=== PATIENT | male | born 1950 | race Caucasian/White ===

== ENCOUNTER 2017-06-23 08:51 | Emergency (ER) | payer BC ==
[2017-06-23] MEDS ORDERED: PREDNISONE 20 MG TABLET PO ONE (09:32)
--- NOTE | 2017-06-23 09:35 | ER Document Report ---
ED Medical Screen (RME) - General Chief Complaint: Allergic Reaction Stated Complaint: POSSIBLE ALLERGIC REACTION Time Seen by Provider: 06/23/17 09:32 Notes: Patient states she has had allergic reactions to strawberries in the past where he has had hives. He states yesterday he did not eat any strawberries but developed an allergic reaction. He states yesterday his throat felt itchy and he had some hives. He states he is intermittently had the sensation that his lips and tongue of had some swelling. He states currently he feels better than yesterday but still has some hives. - Related Data Allergies/Adverse Reactions: No Known Allergies Allergy (Unverified 06/23/17 09:00) Home Medications: Current Home Medications Lisinopril/Hydrochlorothiazide [Lisinopril-Hctz 20-25 mg Tab] 1 each PO DAILY [History] Past Medical History - Social History Chew tobacco use (# tins/day): No Frequency of alcohol use: Occasional Drug Abuse: None - Past Medical History Cardiac Medical History: Reports: Hx Hypertension Renal/ Medical History: Denies: Hx Peritoneal Dialysis Past Surgical History: Reports: Hx Orthopedic Surgery - right knee Physical Exam - Vital signs Vitals: Temp Pulse Resp BP Pulse Ox 99.2 F 107 H 20 115/62 93 06/23/17 08:55 06/23/17 08:55 06/23/17 08:55 06/23/17 08:55 06/23/17 08:55 Course - Vital Signs Vital signs: Temp Pulse Resp BP Pulse Ox 99.2 F 107 H 20 115/62 93 06/23/17 08:55 06/23/17 08:55 06/23/17 08:55 06/23/17 08:55 06/23/17 08:55
[2017-06-23] MEDS ORDERED: NORMAL SALINE 1000 ML 1,000 ML IV ONE (10:11)
[2017-06-23 10:16] LABS: ABSOLUTE BASOPHILS # (AUTO) 0.1 10^3/uL (0.0-0.2); ABSOLUTE EOSINOPHILS # (AUTO) 0.2 10^3/uL (0.0-0.6); ABSOLUTE LYMPHOCYTES (AUTO) 1.5 10^3/uL (0.5-4.7); ABSOLUTE MONOCYTES (AUTO) 0.4 10^3/uL (0.1-1.4); ABSOLUTE NEUT (AUTO) 6.6 10^3/uL (1.7-8.2); BASOPHILS % (AUTO) 0.6 % (0-2); EOSINOPHILS % (AUTO) 2.6 % (0-6); HEMATOCRIT 48.5 % (37.9-51.0); HEMOGLOBIN 16.6 g/dL (13.5-17.0); HGB HCT DIFFERENCE 1.3; LYMPHOCYTES % (AUTO) 16.9 % (13-45); MEAN CORPUSCULAR HEMOGLOBIN 31.5 pg (27.0-33.4); MEAN CORPUSCULAR HGB CONC 34.2 g/dL (32.0-36.0); MEAN CORPUSCULAR VOLUME 92 fl (80-97); MONOCYTES % (AUTO) 4.7 % (3-13); RED BLOOD COUNT 5.26 10^6/uL (4.35-5.55); RED CELL DISTRIBUTION WIDTH 13.3 % (11.5-14.0); SEGMENTED NEUTROPHILS % (AUTO) 75.2 % (42-78); WHITE BLOOD COUNT 8.8 10^3/uL (4.0-10.5)
--- NOTE | 2017-06-23 10:16 | ER Document Report ---
ED Allergic Reaction - General Chief Complaint: Allergic Reaction Stated Complaint: POSSIBLE ALLERGIC REACTION Time Seen by Provider: 06/23/17 09:32 Mode of Arrival: Ambulatory Notes: The patient is a 67-year-old male who presents with a pruritic rash on his lower abdomen since yesterday. He has had this multiple times in the past and thinks it is from strawberries, but he did not have any strawberries yesterday. He took Benadryl yesterday and earlier today with some relief of his pruritus. Patient noticed to be in new onset A. fib with RVR in triage. Patient follows with Dr. Palomino in [place] and has never been told that he has A. fib. He denies chest pain, shortness of breath, lightheadedness, near syncope, syncope, difficulty breathing, difficulty swallowing, tongue or lip swelling, nausea or vomiting. - Related Data Allergies/Adverse Reactions: No Known Allergies Allergy (Unverified 06/23/17 09:00) Home Medications: Current Home Medications Lisinopril/Hydrochlorothiazide [Lisinopril-Hctz 20-25 mg Tab] 1 each PO DAILY [History] Past Medical History - General Information source: Patient - Social History Smoking Status: Current Every Day Smoker Chew tobacco use (# tins/day): No Frequency of alcohol use: Occasional Drug Abuse: None Family History: Reviewed & Not Pertinent Patient has suicidal ideation: No Patient has homicidal ideation: No - Past Medical History Cardiac Medical History: Reports: Hx Hypertension Renal/ Medical History: Denies: Hx Peritoneal Dialysis Past Surgical History: Reports: Hx Orthopedic Surgery - right knee Review of Systems - Review of Systems Notes: REVIEW OF SYSTEMS: CONSTITUTIONAL: -fevers, -chills EENT: -eye pain, -difficulty swallowing, -nasal congestion CARDIOVASCULAR:-chest pain, -syncope. RESPIRATORY: -cough, -SOB GASTROINTESTINAL: -abdominal pain, - nausea, -vomiting, -diarrhea GENITOURINARY: -dysuria, -hematuria MUSCULOSKELETAL: -back pain, -neck pain SKIN: +rash HEMATOLOGIC: -easy bruising or bleeding. LYMPHATIC: -swollen, enlarged glands. NEUROLOGICAL: -altered mental status or loss of consciousness, -headache, - neurologic symptoms PSYCHIATRIC: -anxiety, -depression. ALL OTHER SYSTEMS REVIEWED AND NEGATIVE. Physical Exam - Vital signs Vitals: Temp Pulse Resp BP Pulse Ox 99.2 F 107 H 20 115/62 93 06/23/17 08:55 06/23/17 08:55 06/23/17 08:55 06/23/17 08:55 06/23/17 08:55 - Notes Notes: PHYSICAL EXAMINATION: GENERAL: Well-appearing, well-nourished and in no acute distress. HEAD: Atraumatic, normocephalic. EYES: Pupils equal round and reactive to light, extraocular movements intact, sclera anicteric, conjunctiva are normal. ENT: nares patent, oropharynx clear without exudates. Moist mucous membranes. No oropharynx swelling. NECK: Normal range of motion, supple without lymphadenopathy, no stridor. LUNGS: Breath sounds clear to auscultation bilaterally and equal. No wheezes rales or rhonchi. HEART: Irregularly irregular rhythm. ABDOMEN: Soft, nontender, normoactive bowel sounds. No guarding, no rebound. No masses appreciated. EXTREMITIES: Normal range of motion, no pitting or edema. No cyanosis. NEUROLOGICAL: Cranial nerves grossly intact. Normal speech, normal gait. Normal sensory and motor exams. PSYCH: Normal mood, normal affect. SKIN: Urticarial lesions on lower abdomen. Course - Re-evaluation Re-evalutation: Patient has a urticarial rash in his lower abdomen, but no other signs of anaphylaxis and his airway is completely patent. He is found to be in new onset A. fib with RVR in triage. He has not had any chest pain, palpitations or syncopal episodes. He saw his dough cutter about a month ago and was told that he "has a clean bill of health." 06/23/17 10:52 Pt in new onset A fib w/ RVR. He is having no symptoms at this time. His CHADS2-VASC score is 2. Called over and spoke to his Linen Room Attendant, Dr. Tayler Palomino. He had an echo (EF 60-65%) and stress test 5 months ago. He is on metorpolol [address] Palomino recommends doubling his metoprolol to 50 mg bid. He also recommends beginning Eliquiis 5 mg bid and following-up in his clinic this week. Pt is comfortable with plan. Will send home with 4 more days of prednisone and instructions to continue benadryl as needed with strict return precautions for anaphylaxis. Since pt has had multiple episodes of urticaria, will have patient follow-up with the damage cutter. Patient is comfortable with plan. - Vital Signs Vital signs: Temp Pulse Resp BP Pulse Ox 99.2 F 107 H 26 H 108/77 95 06/23/17 08:55 06/23/17 08:55 06/23/17 11:01 06/23/17 11:01 06/23/17 11:01 - Laboratory Result Diagrams: 06/23/17 10:00 06/23/17 10:00 Laboratory results interpreted by me: 06/23/17 10:00 BUN 27 H Creatinine 1.26 H Est GFR (Non-Af Amer) 57 L Glucose 114 H - EKG Interpretation by Me EKG shows normal: Intervals, QRS Complexes, ST-T Waves Rate: Tachycardia Rhythm: A.Fib When compared to previous EKG there are: Previous EKG unavailable Discharge - Discharge Clinical Impression: Atrial fibrillation with RVR, Urticaria Condition: Stable Disposition: HOME, SELF-CARE Additional Instructions: Dr. Palomino recommends increasing your metoprolol from 25 mg twice a day to 50 mg twice a day. You will also begin a blood thinner, Eliquis 5mg twice a day, and follow-up with him this week. Return immediately to the ER if you notice any worsening symptoms or your allergic reaction, including difficulty breathing, difficulty swallowing or tongue swelling. If you began to have chest pain, shortness of breath or any other concerns, return immediately to the ER. ACUTE ALLERGIC REACTION: Your symptoms are due to an allergic reaction. Allergy can cause hives, swelling of the hands, feet, and face, hoarseness, and difficulty swallowing or breathing. It may be due to exposure to medication, animal dander, foods, infection, or insect bites. Medication is a common cause, even when prior use of this same medication caused no problems. Acute treatment may include adrenalin and antihistamines. Usually, the specific allergic agent can't be identified unless repeated episodes occur. Home treatment includes the following: (1) Stop any suspicious medications. This will be discussed with you. (2) Oral antihistamines for the next four to five days. Example, diphenhydramine (Benadryl) every four hours. (3) You may also use cimetidine (Tagamet), ranitidine (Zantac), or famotidine ( Pepcid) every four hours if diphenhydramine is not controlling itching and hives. (4) Avoid aspirin until the hives completely disappear. (5) Avoid hot baths or showers until the hives are completely gone. Call the doctor if faintness, difficulty swallowing, tightness in the chest , or wheezing occurs. STEROID MEDICATION: You have been given a medicine of the cortisone/steroid class. This medication is used to control inflammation or allergy. It is usually only given for a short period of time, until the acute process subsides. There are usually no side effects from short-term use of cortisone-like medications. Some persons feel an increased sense of well-being and are not sleepy at bedtime. Long-term use of cortisone medications is best avoided, unless required for a severe condition. If your condition does not remit, or relapses after the course of corticosteroid medication, you should consult your physician. ANTIHISTAMINES: An antihistamine has been given and/or prescribed to control your symptoms. Antihistamines are used for many reasons, including itching, watering eyes, runny nose, allergic swelling, hives, and insect stings. Antihistamines may cause drowsiness, especially with the first dose. Do not operate machinery or drive while under the effects of the medication. Other common side effects include dry mouth and eyes. In older persons, antihistamines can occasionally cause urinary retention, constipation, and trouble focusing the eyes. Do not combine the medication with alcohol, or with any other medication without talking to your doctor. USE OF DIPHENHYDRAMINE: The use of diphenhydramine (Benadryl) has been recommended to control allergic symptoms. The 25 mg strength is available over- the-counter, as well as the elixir. This antihistamine is used for many symptoms. It's useful for itching, watering eyes and nose, allergic swelling, hives, and insect stings. The medication can be repeated four times daily. Age Elixir (12.5 mg/tsp) 25 mg pill 2-3 yr 1/2 tsp 4-8 yr 1 tsp 9-14 yr 2 tsp one tab adult 1-2 tabs Antihistamines may cause drowsiness, especially with the first dose. Do not operate machinery or drive while under the effects of the medication. Do not combine the medication with alcohol, or with any other medication without talking to your doctor. FOLLOW-UP CARE: If you have been referred to a physician for follow-up care, call the physician s office for an appointment as you were instructed or within the next two days. If you experience worsening or a significant change in your symptoms, notify the physician immediately or return to the Emergency Department at any time for re-evaluation. Atrial Fibrillation Atrial fibrillation is an abnormal heart rhythm, caused by irregular electrical circuits in the upper heart chamber. It can be caused by heart valve disease, hardening of the arteries, or metabolic problems such as thyroid disease, or may occur without a clear cause. Atrial fibrillation may occur only occasionally, or may be chronic. Atrial fibrillation often results in a very fast heart rate, with palpitations, lightheadedness, and shortness of breath. Treatment is to slow the abnormally fast rate, and to convert the rhythm back to normal, if possible. Many patients stay in atrial fibrillation for years without symptoms or complications. Your doctor will decide whether you can be converted back to a normal heart rhythm. Contact the doctor or emergency medical system at once if you develop chest pain, shortness of breath, or severe lightheadedness, or if you develop any disturbance of consciousness, problems with speech, or localized weakness. Prescriptions: Apixaban [Eliquis 5 mg Tablet] 5 mg PO BID 10 Days tablet Metoprolol Tartrate 50 mg PO BID 10 Days tablet Prednisone [Deltasone 20 mg Tablet] 3 tab PO DAILY 4 Days tablet Referrals: TAYLER PALOMINO MD [NO LOCAL MD] - Follow up as needed
[2017-06-23 10:40] LABS: ALANINE AMINOTRANSFERASE 54 U/L (21-72); ALBUMIN 4.2 g/dL (3.5-5.0); ALKALINE PHOSPHATASE 84 U/L (38-126); ANION GAP 13 (5-19); ASPARTATE AMINO TRANSFERASE 25 U/L (17-59); BILIRUBIN,DIRECT 0.3 mg/dL (0.0-0.4); BILIRUBIN,TOTAL 0.9 mg/dL (0.2-1.3); BLOOD UREA NITROGEN 27 mg/dL (7-20); CALCIUM 9.2 mg/dL (8.4-10.2); CARBON DIOXIDE 29 mmol/L (22-30); CHLORIDE 99 mmol/L (98-107); CREATININE RESULT 1.26 mg/dL (0.52-1.25); GLUCOSE 114 mg/dL (75-110); MAGNESIUM 2.2 mg/dL (1.6-2.3); POTASSIUM 4.6 mmol/L (3.6-5.0); SODIUM 140.9 mmol/L (137-145); TOTAL PROTEIN 7.2 g/dL (6.3-8.2)
[2017-06-23] MEDS ORDERED: METOPROLOL TARTRATE 25 MG TABLET PO ONE (11:04)
[2017-06-23] MEDS ORDERED: APIXABAN 5 MG TABLET PO ONE (11:04)
[2017-06-23 11:19] VITALS: BP 118/95
--- NOTE | 2017-06-23 13:37 | EKG REPORT ---
SEVERITY:- ABNORMAL ECG - ATRIAL FIBRILLATION, V-RATE 81-169 LEFT ANTERIOR FASCICULAR BLOCK BORDERLINE T ABNORMALITIES, ANT-LAT LEADS BORDERLINE PROLONGED QT INTERVAL : Confirmed by: José Luis Coffey MD 23-Jun-2017 13:36:23
== END 2017-06-23 11:26 | disposition home or self-care (01) ==
LOC: ER 08:51
DX: L50.9 Urticaria, unspecified (principal); I48.91 Unspecified atrial fibrillation; R00.0 Tachycardia, unspecified; F17.200 Nicotine dependence, unspecified, uncomplicated; I10 Essential (primary) hypertension; Z79.899 Other long term (current) drug therapy
CPT/HCPCS: 93005; 99283; 96360; 36415; 83735; 85025; 80053; 93010; J7512; J7030

== ENCOUNTER 2017-06-28 08:52 | Inpatient (IN) | payer BC, MEDICARE ==
--- NOTE | 2017-06-28 09:14 | ER Document Report ---
ED General - General Chief Complaint: Shortness Of Breath Stated Complaint: BREATHING DIFFICULTY Time Seen by Provider: 06/28/17 09:13 Mode of Arrival: Wheelchair Information source: Patient Notes: 67-year-old male who was recently diagnosed with A. fib in the emergency department 5 days prior started on Eliquis and increased on metoprolol from 25- 50 after discussion with rinkman presents with complaints of shortness of breath. Patient denies any fevers or chills denies any productivity to cough patient noted to be satting 87% on room air at rest . pt is not on oxygen at home TRAVEL OUTSIDE OF THE [place] IN LAST 30 DAYS: No - HPI Onset: Yesterday Onset/Duration: Sudden Quality of pain: No pain Severity: Severe Pain Level: Denies Associated symptoms: Nonproductive cough, Shortness of breath Exacerbated by: Walking Relieved by: Denies Similar symptoms previously: Yes Recently seen / treated by doctor: Yes - Related Data Allergies/Adverse Reactions: No Known Allergies Allergy (Unverified 06/23/17 09:00) Past Medical History - Social History Smoking Status: Current Every Day Smoker Cigarette use (# per day): Yes Chew tobacco use (# tins/day): No Smoking Education Provided: No Family History: Reviewed & Not Pertinent - Past Medical History Cardiac Medical History: Reports: Hx Hypertension Renal/ Medical History: Denies: Hx Peritoneal Dialysis Past Surgical History: Reports: Hx Orthopedic Surgery - right knee Review of Systems - Review of Systems Notes: REVIEW OF SYSTEMS: CONSTITUTIONAL : Denies fever, chills, or sweats. Denies recent illness. EENT: Denies eye, ear, throat, or mouth pain or symptoms. Denies nasal or sinus congestion or discharge. Denies throat, tongue, or mouth swelling or difficulty swallowing. CARDIOVASCULAR: Admits to new onset A. fib RESPIRATORY: Admits to shortness of GASTROINTESTINAL: Denies abdominal pain or distention. Denies nausea, vomiting , or diarrhea. Denies blood in vomitus, stools, or per rectum. Denies black, tarry stools. Denies constipation. GENITOURINARY: Denies difficulty urinating, painful urination, burning, frequency, blood in urine, or discharge. MUSCULOSKELETAL: Denies back or neck pain or stiffness. Denies joint pain or swelling. SKIN: Denies rash, lesions or sores. HEMATOLOGIC : Denies easy bruising or bleeding. LYMPHATIC: Denies swollen, enlarged glands. NEUROLOGICAL: Denies confusion or altered mental status. Denies passing out or loss of consciousness. Denies dizziness or lightheadedness. Denies headache. Denies weakness or paralysis or loss of use of either side. Denies problems with gait or speech. Denies sensory loss, numbness, or tingling. Denies seizures. PSYCHIATRIC: Denies anxiety or stress. Denies depression, suicidal ideation, or homicidal ideation. ALL OTHER SYSTEMS REVIEWED AND NEGATIVE. Dictation was performed using [email or web address] recognition software PHYSICAL EXAMINATION: GENERAL: Well-appearing, well-nourished and in moderate respiratory distress HEAD: Atraumatic, normocephalic. EYES: Pupils equal round and reactive to light, extraocular movements intact, sclera anicteric, conjunctiva are normal. ENT: Nares patent, oropharynx clear without exudates. Moist mucous membranes. NECK: Normal range of motion, supple without lymphadenopathy LUNGS: Breath sounds clear to auscultation bilaterally and equal. No wheezes rales or rhonchi. Patient on nasal cannula HEART: A. fib RVR ABDOMEN: Soft, nontender, nondistended abdomen. No guarding, no rebound. No masses appreciated. Musculoskeletal: Normal range of motion, no pitting or edema. No cyanosis. NEUROLOGICAL: Cranial nerves grossly intact. Normal speech, normal gait. Normal sensory, motor exams PSYCH: Normal mood, normal affect. SKIN: Warm, Dry, normal turgor, no rashes or lesions noted. Physical Exam - Vital signs Vitals: Temp Pulse Resp BP Pulse Ox 98.5 F 93 24 H 126/106 H 90 L 06/28/17 09:01 06/28/17 09:01 06/28/17 09:01 06/28/17 09:01 06/28/17 09:01 Course - Re-evaluation Re-evalutation: 06/28/17 10:08 My concern is for a pulmonary emboli given the patient was recently started on Eliquis, he is hypoxic upon arrival 06/28/17 11:15 CTA was negative, interstitial edema versus atypical pneumonia was noted, patient has been given breathing treatment and antibiotics, he is on 4 L nasal cannula satting 90-95%, his A. fib is noted to be between 80s-110, he is in no distress at this time but I will admit the patient to the hospitalist service for further care - Vital Signs Vital signs: Temp Pulse Resp BP Pulse Ox 98.5 F 93 29 H 146/111 H 86 L 06/28/17 09:01 06/28/17 09:01 06/28/17 10:01 06/28/17 10:01 06/28/17 10:06 - Laboratory Result Diagrams: 06/28/17 09:17 06/28/17 09:17 Laboratory results interpreted by me: 06/28/17 06/28/17 06/28/17 09:17 09:17 09:17 WBC 12.5 H Seg Neutrophils % 83.4 H Lymphocytes % 6.6 L Absolute Neutrophils 10.4 H Carbon Dioxide 31 H Glucose 124 H Direct Bilirubin 0.6 H AST 64 H ALT 171 H NT-Pro-B Natriuret Pep 1540 H - Diagnostic Test Radiology reviewed: Image reviewed, Reports reviewed Critical Care Note - Critical Care Note Total time excluding time spent on procedures (mins): 37 Comments: 37 minutes of critical care time spent in direct contact evaluating and reevaluating the patient, treating symptoms, reviewing labs and studies and speaking with family and consultants excluding any procedures Discharge - Discharge Clinical Impression: Atrial fibrillation with RVR, Hypoxemia Condition: Stable Disposition: ADMITTED INPATIENT Admitting Provider: Hospitalist Unit Admitted: Telemetry
[2017-06-28] MEDS ORDERED: IPRATROPIUM/ALBUTEROL 0.5-2.5 MG/3 ML AMPUL NEB ONE (09:35)
[2017-06-28] MEDS ORDERED: PREDNISONE 20 MG TABLET PO ONE (09:35)
[2017-06-28 09:47] LABS: ABSOLUTE BASOPHILS # (AUTO) 0.1 10^3/uL (0.0-0.2); ABSOLUTE EOSINOPHILS # (AUTO) 0.1 10^3/uL (0.0-0.6); ABSOLUTE LYMPHOCYTES (AUTO) 0.8 10^3/uL (0.5-4.7); ABSOLUTE NEUT (AUTO) 10.4 10^3/uL (1.7-8.2); BASOPHILS % (AUTO) 0.8 % (0-2); EOSINOPHILS % (AUTO) 1.1 % (0-6); HEMATOCRIT 43.4 % (37.9-51.0); HEMOGLOBIN 14.4 g/dL (13.5-17.0); HGB HCT DIFFERENCE -0.2; LYMPHOCYTES % (AUTO) 6.6 % (13-45); MEAN CORPUSCULAR HEMOGLOBIN 30.8 pg (27.0-33.4); MEAN CORPUSCULAR HGB CONC 33.3 g/dL (32.0-36.0); MEAN CORPUSCULAR VOLUME 93 fl (80-97); MONOCYTES % (AUTO) 8.1 % (3-13); RED BLOOD COUNT 4.69 10^6/uL (4.35-5.55); RED CELL DISTRIBUTION WIDTH 13.4 % (11.5-14.0); SEGMENTED NEUTROPHILS % (AUTO) 83.4 % (42-78); WHITE BLOOD COUNT 12.5 10^3/uL (4.0-10.5)
[2017-06-28 10:35] LABS: ALANINE AMINOTRANSFERASE 171 U/L (21-72); ALBUMIN 3.9 g/dL (3.5-5.0); ALKALINE PHOSPHATASE 96 U/L (38-126); ANION GAP 11 (5-19); ASPARTATE AMINO TRANSFERASE 64 U/L (17-59); BILIRUBIN,DIRECT 0.6 mg/dL (0.0-0.4); BILIRUBIN,TOTAL 1.1 mg/dL (0.2-1.3); BLOOD UREA NITROGEN 16 mg/dL (7-20); CALCIUM 9.3 mg/dL (8.4-10.2); CARBON DIOXIDE 31 mmol/L (22-30); CHLORIDE 98 mmol/L (98-107); CREATINE KINASE 141 U/L (55-170); GLUCOSE 124 mg/dL (75-110); POTASSIUM 4.8 mmol/L (3.6-5.0); SODIUM 139.7 mmol/L (137-145); TOTAL PROTEIN 7.1 g/dL (6.3-8.2)
--- NOTE | 2017-06-28 10:48 | RADIOLOGY REPORT (SQ) ---
EXAM DESCRIPTION: CTA CHEST COMPLETED DATE/TIME: 06/28/2017 10:32 am REASON FOR STUDY: sob COMPARISON: None. TECHNIQUE: CT scan of the chest performed using helical scanning technique with dynamic intravenous contrast injection. Images reviewed with lung, soft tissue and bone windows. Reconstructed coronal and sagittal MPR images reviewed. Additional 3 dimensional post-processing performed to develop Maximal Intensity Projection images (MO P). All images stored on PACS. All CT scanners at this facility use dose modulation, iterative reconstruction, and/or weight based d osing when appropriate to reduce radiation dose to as low as reasonably achievable (ALARA). [facility]: Dose Right [facility]: CareDose [facility]: Dose Right [facility]: Teradose 4D [facility]: [employer] CONTRAST TYPE AND DOSE: Not recorded by technologist. Contrast bolus optimized for the pulmonary arteries. Not diagnostic for the aorta. RENAL FUNCTION: BUN 27 creatinine 1.3 RADIATION DOSE: . LIMITATIONS: Timing of contrast bolus. FINDINGS: LUNGS AND PLEURA: Diffuse interstitial pattern. Interlobular septal thickening with some Rober B-lines. 8 mm ground-glass nodule in the middle lobe. No effusions. AORTA AND GREAT VESSELS: No aneurysm. Contrast bolus not optimized for the aorta. HEART: No pericardial effusion. No significant coronary artery calcifications. PULMONARY ARTERIES: No emboli visualized in the main pulmonary arteries. Limited evaluation of the s egmental branches. HILAR AND MEDIASTINAL STRUCTURES: Small mediastinal nodes measuring up to about 1 cm in short axis. No bulky adenopathy. HARDWARE: None in the chest. UPPER ABDOMEN: No significant findings. Limited exam. THYROID AND OTHER SOFT TISSUES: No masses. No adenopathy. BONES: No acute or significant finding. 3D MIPS: Confirm above findings. OTHER: No other significant finding. IMPRESSION: 1. No central PE. 2. Interstitial edema versus atypical infection. COMMENT: Quality ID # [id number]: Final reports with documentation of one or more dose reduction techniques (e.g., Automated exposure control, adjustment of the mA and/or kV according to patient size, use of iterative reconstruction technique) TECHNICAL DOCUMENTATION: JOB ID: [id number]- All Rights Reserved
[2017-06-28] MEDS ORDERED: CEFTRIAXONE 1 GM/D5W RTU 1 GM/50 ML RTUPB IV ONE (10:57)
[2017-06-28 10:59] LABS: CREATINE KINASE MB 2.4 ng/mL (<4.55); TROPONIN I 0.021 ng/mL
[2017-06-28] MEDS ORDERED: IPRATROPIUM/ALBUTEROL 0.5-2.5 MG/3 ML AMPUL NEB PRN (13:16)
[2017-06-28] MEDS ORDERED: ONDANSETRON HCL INJ/PF 4 MG/2 ML SDV IV PRN (13:16)
[2017-06-28 16:50] LABS: APPEARANCE,URINE CLEAR; BILIRUBIN,URINE NEGATIVE (NEGATIVE); GLUCOSE, URINE 50 mg/dL (NEGATIVE); KETONES,URINE NEGATIVE (NEGATIVE); LEUKOCYTE ESTERASE,URINE NEGATIVE (NEGATIVE); NITRITE,URINE NEGATIVE (NEGATIVE); PROTEIN,URINE NEGATIVE (NEGATIVE); URINE SPECIFIC GRAVITY 1.033; UROBILINOGEN,URINE NEGATIVE mg/dL (<2.0)
[2017-06-28] MEDS: APIXABAN 5 MG TABLET PO SCH (17:29)
--- NOTE | 2017-06-28 17:41 | EKG REPORT ---
SEVERITY:- ABNORMAL ECG - ATRIAL FIBRILLATION, V-RATE 66-124 LEFT AXIS DEVIATION LOW VOLTAGE THROUGHOUT NONSPECIFIC ST-T CHANGES ANTERIOR ST CHANGES. : Confirmed by: José Luis Coffey MD 28-Jun-2017 17:40:58
[2017-06-28] MEDS ORDERED: FUROSEMIDE INJ/PF 40 MG/4 ML SDV IV ONE (17:59)
--- NOTE | 2017-06-28 18:05 | PDOC H&P ---
History of Present Illness Admission Date/PCP: 06/28/17 12:23 History of Present Illness: CARLOS BELTRAN is a 67 year old white male with a past medical history significant for recently diagnosed atrial fibrillation 5 days ago and hypertension who presents to the service with shortness of breath. The patient presented here with hives 5 days ago. He said he was out on the boat fishing when he broke out in hives. He is thinks he is allergic to dust mites. Patient came in and was treated accordingly and told to follow-up with his portable track crew chief. The patient was given medication by his portable track crew chief. He stated that he felt 1 of the medications could be the cause for his current shortness of breath. He read literature on the package insert. It is unclear to me which medication that was. The patient developed shortness of breath about 48 hours ago and has become progressively worse. He says it has been difficult for him to lay flat. He used a fish tank pump to supplement his oxygenation. This seemed to help a little bit to him. He denies any fevers chills sick contacts, nausea, vomiting or chest pain. He has had a scant sputum production with a cough. He denies any blood in the sputum. He reports some increased weight gain but he feels that it happened over a long period of time. In the emergency room the patient was found to be hypoxemic and placed on oxygen. He was given a dose of ceftriaxone and prednisone and albuterol nebulizers.. He quit smoking in 1973. He occasionally uses marijuana. Past Medical History Cardiac Medical History: Reports: Atrial Fibrillation - eliquis, Hypertension Past Surgical History Past Surgical History: Reports: Orthopedic Surgery - right knee Social History Information Source: Patient Lives with: Alone Smoking Status: Former Smoker - Quit in 1973 Drugs: Marijuana Hx Prescription Drug Abuse: No Past Social History Note: The patient quit drinking about a month ago. Unfortunately, the patient lost his 2 years ago. Since her his consumption of alcohol had increased. The patient states that a month ago he outright quit drinking because he felt it was doing him harm. Apparently the patient used to drink heavily. He usually consumed beer - Advance Directive Resuscitation Status: Full Code Family History Family History: Hypertension - His brother has hypertension. Parental Family History Reviewed: Yes Children Family History Reviewed: Yes Sibling(s) Family History Reviewed.: Yes Medication/Allergy Home Medications: Apixaban [Eliquis 5 mg Tablet] 5 mg PO BID 10 Days tablet 06/23/17 Metoprolol Tartrate 50 mg PO BID 10 Days tablet 06/23/17 Lisinopril/Hydrochlorothiazide [Zestoretic 20-12.5 mg Tablet] 1 tab PO DAILY 10/10 Multivit-Min/FA/Lycopen/Lutein [Centrum Silver Men Tablet] 1 tab PO DAILY Allergies/Adverse Reactions: No Known Allergies Allergy (Unverified 06/23/17 09:00) Review of Systems Review of Systems: Review of systems is pertinent for that already listed in the HPI. In addition to this the patient states that he has chronic right knee pain along with intermittent swelling of that knee. He denies any diarrhea or constipation. He denies blood in the stool, urine, coughing up blood, throwing up blood and abdominal pain. He denies heat or cold intolerance. Physical Exam Vital Signs: Temp Pulse Resp BP Pulse Ox 98.5 F 93 27 H 130/96 H 90 L 06/28/17 09:01 06/28/17 09:01 06/28/17 12:08 06/28/17 12:08 06/28/17 12:08 GENERAL: This is a well-developed, well-nourished morbidly obese white male resting on the side of his stretcher in the ED in no acute distress. HEENT: Normocephalic atraumatic. Sclera are anicteric. Mallampati 2. Increased neck circumference. Moist mucous membranes. Dentition is fair. HEART: [Irregular rate and rhythm. 1 out of 6 murmurs. No rubs or gallops.] LUNGS: Diminished at the bases bilaterally with equal rise and fall the chest. ABDOMEN: [Soft, nontender, obese nondistended with normoactive bowel sounds] EXTREMETIES: [No clubbing, cyanosis. Trace nonpitting edema bilaterally. 2+ peripheral pulses bilaterally. 5 out of 5 strength in the upper and lower extremities bilaterally] NEURO: [Awake, alert and oriented 3. Cranial nerves II through XII are specifically intact.] Results Impressions: Chest/Abdomen CTA 06/28/17 10:02 IMPRESSION: 1. No central PE. 2. Interstitial edema versus atypical infection. Assessment & Plan - Diagnosis (1) Acute respiratory failure with hypoxemia Is this a current diagnosis for this admission?: Yes Plan: Likely secondary to underlying heart failure versus pneumonia. Continue oxygen therapy continue AA nebs. Will diurese. (2) Atrial fibrillation with RVR Is this a current diagnosis for this admission?: Yes Plan: Continue metoprolol for rate control. Continue Eliquis. Patient has a follow- up appointment with his wireless field technician on July 02. (3) Diastolic heart failure Qualifiers: Heart failure chronicity: acute Qualified Code(s): I50.31 - Acute diastolic (congestive) heart failure Is this a current diagnosis for this admission?: Yes Plan: Patient recently had an echocardiogram with his wireless field technician Dr. Zurita in [facility] a month ago. We will try and get those records. If we cannot we will need to repeat the patient's echo. CTA of the chest shows interstitial edema versus atypical pneumonia. The patient does have a slightly elevated white count. However he has been in A. fib for over the last 5 days and this could be reflective of that. Will give Lasix. BNP is greater than 1500. Recheck BMP in the morning. (4) Pneumonia Qualifiers: Pneumonia type: due to unspecified organism Laterality: unspecified laterality Lung location: unspecified part of lung Qualified Code(s): J18.9 - Pneumonia, unspecified organism Is this a current diagnosis for this admission?: Yes Plan: Patient has findings on CTA of atypical pneumonia versus interstitial edema. We will diurese the patient and repeat a chest x-ray tomorrow. Patient has slight elevation in his white blood cell count. He does not look toxic. He received a dose of prednisone as well as Rocephin down in the emergency room empirically. We will continue Levaquin on the floor. - Time Time Spent: 30 to 50 Minutes Anticipated discharge: Home Within: within 48 hours - Inpatient Certification Medical Necessity: Need Close Monitoring Due to Risk of Patient Decompensation
[2017-06-28] MEDS: METOPROLOL TARTRATE 50 MG TABLET PO SCH (22:38)
[2017-06-29] MEDS: LEVALBUTEROL HCL NEB 1.25 MG/3 ML AMPUL NEB SCH ×4 (02:22→20:10)
[2017-06-29] MEDS: METHYLPREDNISOLONE INJ 125 MG/2 ML SDV IV SCH ×3 (06:00→21:53)
[2017-06-29] MEDS ORDERED: METHYLPREDNISOLONE INJ 40 MG/1 ML SDV IV SCH (06:00)
--- NOTE | 2017-06-29 06:05 | EKG REPORT ---
SEVERITY:- ABNORMAL ECG - ATRIAL FIBRILLATION, V-RATE 91-147 LEFT AXIS DEVIATION LOW VOLTAGE THROUGHOUT : Confirmed by: José Luis Coffey MD 29-Jun-2017 06:04:52
[2017-06-29 06:13] LABS: ABSOLUTE BASOPHILS # (AUTO) 0.1 10^3/uL (0.0-0.2); ABSOLUTE EOSINOPHILS # (AUTO) 0.1 10^3/uL (0.0-0.6); ABSOLUTE LYMPHOCYTES (AUTO) 1.6 10^3/uL (0.5-4.7); ABSOLUTE MONOCYTES (AUTO) 0.7 10^3/uL (0.1-1.4); ABSOLUTE NEUT (AUTO) 7.5 10^3/uL (1.7-8.2); BASOPHILS % (AUTO) 0.9 % (0-2); EOSINOPHILS % (AUTO) 0.9 % (0-6); HEMATOCRIT 43.1 % (37.9-51.0); HEMOGLOBIN 14.4 g/dL (13.5-17.0); HGB HCT DIFFERENCE 0.1; LYMPHOCYTES % (AUTO) 16.1 % (13-45); MEAN CORPUSCULAR HEMOGLOBIN 31.4 pg (27.0-33.4); MEAN CORPUSCULAR HGB CONC 33.5 g/dL (32.0-36.0); MEAN CORPUSCULAR VOLUME 94 fl (80-97); MONOCYTES % (AUTO) 6.9 % (3-13); RED BLOOD COUNT 4.59 10^6/uL (4.35-5.55); RED CELL DISTRIBUTION WIDTH 13.9 % (11.5-14.0); SEGMENTED NEUTROPHILS % (AUTO) 75.2 % (42-78)
[2017-06-29 06:35] LABS: ANION GAP 10 (5-19); BLOOD UREA NITROGEN 21 mg/dL (7-20); CALCIUM 9.2 mg/dL (8.4-10.2); CARBON DIOXIDE 33 mmol/L (22-30); CHLORIDE 100 mmol/L (98-107); CREATININE RESULT 1.11 mg/dL (0.52-1.25); GLUCOSE 103 mg/dL (75-110); MAGNESIUM 2.6 mg/dL (1.6-2.3); POTASSIUM 5.4 mmol/L (3.6-5.0); SODIUM 142.9 mmol/L (137-145)
[2017-06-29] MEDS: APIXABAN 5 MG TABLET PO SCH ×2 (08:44→18:37)
[2017-06-29] MEDS: LEVOFLOXACIN 500 MG TABLET PO SCH (08:44)
[2017-06-29] MEDS: METOPROLOL TARTRATE 50 MG TABLET PO SCH ×2 (08:45→21:54)
--- NOTE | 2017-06-29 12:34 | PDOC PROGRESS REPORT ---
Subjective Progress Note for:: 06/29/17 Subjective:: This is a follow-up visit for acute respiratory failure. Patient still down in the emergency room. He states that he slept well last night. He thinks that his breathing is a little bit better today. He has no current complaints. He stated that he got up to go when use the bathroom and felt more short of breath with ambulation. Reason For Visit: ACUTE RESPIRATORY FAILURE,POSSIBLE PNEUMONIA Physical Exam Vital Signs: Temp Pulse Resp BP Pulse Ox 98.5 F 90 19 131/76 H 94 06/29/17 09:18 06/29/17 07:53 06/29/17 11:00 06/29/17 08:45 06/29/17 11:00 Intake & Output 06/28/17 06/29/17 06/30/17 06:59 06:59 06:59 Intake Total 3 Output Total 1300 Balance -1297 GENERAL: This is a well-developed, well-nourished morbidly obese white male resting in a recliner down in the emergency room. HEART: Irregular rate and rhythm. 1 out of 6 murmurs. No rubs or gallops. LUNGS: Diminished at the bases bilaterally with equal rise and fall the chest. ABDOMEN: Soft, nontender, obese nondistended with normoactive bowel sounds EXTREMETIES: No clubbing, cyanosis. Trace nonpitting edema bilaterally. 2+ peripheral pulses bilaterally. NEURO: Awake, alert and oriented 3. Cranial nerves II through XII are specifically intact. Results Laboratory Results: 06/29/17 05:50 06/29/17 05:50 06/28/17 06/29/17 06/29/17 16:15 05:50 05:50 WBC 10.0 RBC 4.59 Hgb 14.4 Hct 43.1 MCV 94 MCH 31.4 MCHC 33.5 RDW 13.9 Plt Count 269 Seg Neutrophils % 75.2 Lymphocytes % 16.1 Monocytes % 6.9 Eosinophils % 0.9 Basophils % 0.9 Absolute Neutrophils 7.5 Absolute Lymphocytes 1.6 Absolute Monocytes 0.7 Absolute Eosinophils 0.1 Absolute Basophils 0.1 Sodium 142.9 Potassium 5.4 H Chloride 100 Carbon Dioxide 33 H Anion Gap 10 BUN 21 H Creatinine 1.11 Est GFR ( Amer) > 60 Est GFR (Non-Af Amer) > 60 Glucose 103 Calcium 9.2 Magnesium 2.6 H Urine Color YELLOW Urine Appearance CLEAR Urine pH 5.0 Ur Specific [place] 1.033 Urine Protein NEGATIVE Urine Glucose (UA) 50 H Urine Ketones NEGATIVE Urine Blood NEGATIVE Urine Nitrite NEGATIVE Ur Leukocyte Esterase NEGATIVE 06/29/17 05:50 NT-Pro-B Natriuret Pep 1300 H Impressions: Chest/Abdomen CTA 06/28/17 10:02 IMPRESSION: 1. No central PE. 2. Interstitial edema versus atypical infection. Assessment & Plan - Diagnosis (1) Acute respiratory failure with hypoxemia Is this a current diagnosis for this admission?: Yes Plan: Likely secondary to underlying heart failure versus pneumonia. Continue oxygen therapy continue AA nebs. He put out 1.3 L overnight. There are no recorded oral input. Therefore, I am uncertain as to what his net negative balance is. Patient states that Lasix did help him feel better, however. (2) Atrial fibrillation with RVR Is this a current diagnosis for this admission?: Yes Plan: Continue metoprolol for rate control. Continue Eliquis. Patient has a follow- up appointment with his residential substance abuse counselor on July 02. Patient's heart rate is under better control. (3) Diastolic heart failure Qualifiers: Heart failure chronicity: acute Qualified Code(s): I50.31 - Acute diastolic (congestive) heart failure Is this a current diagnosis for this admission?: Yes Plan: Patient recently had an echocardiogram with his residential substance abuse counselor Dr. Zurita in [facility] a month ago. We will try and get those records. If we cannot we will need to repeat the patient's echo. No paperwork as of yet. However, it is only 10 in the morning. We will see what turns up by midday. CTA of the chest shows interstitial edema versus atypical pneumonia. BNP is still elevated. Given that the patient is still quite dyspneic on exertion I will give him another dose of Lasix today. (4) Pneumonia Qualifiers: Pneumonia type: due to unspecified organism Laterality: unspecified laterality Lung location: unspecified part of lung Qualified Code(s): J18.9 - Pneumonia, unspecified organism Is this a current diagnosis for this admission?: Yes Plan: Patient has findings on CTA of atypical pneumonia versus interstitial edema. We will diurese the patient and repeat a chest x-ray tomorrow. Patient has slight elevation in his white blood cell count. He does not look toxic. He received a dose of prednisone as well as Rocephin down in the emergency room empirically. He has been changed to Levaquin; we will continue this today. - Time Time Spent with patient: 15-24 minutes
[2017-06-29] MEDS ORDERED: FUROSEMIDE INJ/PF 20 MG/2 ML SDV IV SCH (12:45)
[2017-06-29] MEDS ORDERED: FUROSEMIDE INJ/PF 40 MG/4 ML SDV IV ONE (13:45)
--- NOTE | 2017-06-29 20:41 | EKG REPORT ---
SEVERITY:- ABNORMAL ECG - A FIB WITH RVR LEFT AXIS DEVIATION LOW VOLTAGE IN FRONTAL LEADS BORDERLINE PROLONGED QT INTERVAL : Confirmed by: Laura Sanches 29-Jun-2017 20:40:30
[2017-06-29] MEDS: FUROSEMIDE INJ/PF 40 MG/4 ML SDV IV SCH (21:53)
[2017-06-30] MEDS: LEVALBUTEROL HCL NEB 1.25 MG/3 ML AMPUL NEB SCH ×4 (02:21→20:25)
[2017-06-30] MEDS: METHYLPREDNISOLONE INJ 125 MG/2 ML SDV IV SCH ×3 (06:56→22:30)
--- NOTE | 2017-06-30 08:50 | RADIOLOGY REPORT (SQ) ---
EXAM DESCRIPTION: CHEST PA/LAT COMPLETED DATE/TIME: 06/30/2017 7:48 am REASON FOR STUDY: sob COMPARISON: None. EXAM PARAMETERS: NUMBER OF VIEWS: two views TECHNIQUE: Digital Frontal and Lateral radiographic views of the chest acquired. RADIATION DOSE: NA LIMITATIONS: none FINDINGS: LUNGS AND PLEURA: Interstitial prominence with linear densities. No large pleural effusio n. No pneumothorax. MEDIASTINUM AND HILAR STRUCTURES: No masses or contour abnormalities. HEART AND VASCULAR STRUCTURES: Heart normal size. No evidence for failure. BONES: No acute findings. HARDWARE: None in the chest. OTHER: No other significant finding. IMPRESSION: INTERSTITIAL PROMINENCE WITH SCATTERED ATELECTASIS. A COMPONENT OF INTERSTITIAL EDEMA C ANNOT BE EXCLUDED. TECHNICAL DOCUMENTATION: JOB ID: [id number] [employer]- All Rights Reserved
[2017-06-30] MEDS: APIXABAN 5 MG TABLET PO SCH ×2 (10:52→17:54)
[2017-06-30] MEDS: LEVOFLOXACIN 500 MG TABLET PO SCH (10:52)
[2017-06-30] MEDS: METOPROLOL TARTRATE 50 MG TABLET PO SCH ×2 (10:52→22:30)
[2017-06-30] MEDS: FUROSEMIDE INJ/PF 40 MG/4 ML SDV IV SCH ×2 (10:52→22:29)
--- NOTE | 2017-06-30 15:35 | PDOC PROGRESS REPORT ---
Subjective Progress Note for:: 06/30/17 Subjective:: Complains of some mild shortness of breath. Reason For Visit: ACUTE RESPIRATORY FAILURE,POSSIBLE PNEUMONIA Physical Exam Vital Signs: Temp Pulse Resp BP Pulse Ox 98.5 F 100 18 115/88 H 93 06/30/17 11:16 06/30/17 13:46 06/30/17 13:46 06/30/17 11:16 06/30/17 13:46 Intake & Output 06/29/17 06/30/17 07/01/17 06:59 06:59 06:59 Intake Total 3 1534 858 Output Total 1300 1750 800 Balance -1297 -216 58 Weight 164.2 kg General appearance: PRESENT: no acute distress Eye exam: PRESENT: conjunctiva pink. ABSENT: scleral icterus Mouth exam: PRESENT: moist, tongue midline Neck exam: ABSENT: JVD Respiratory exam: PRESENT: rales. ABSENT: rhonchi, wheezes Cardiovascular exam: PRESENT: RRR. ABSENT: diastolic murmur, rubs, systolic murmur GI/Abdominal exam: PRESENT: normal bowel sounds, soft. ABSENT: distended, guarding, mass, organolmegaly, rebound, tenderness Extremities exam: ABSENT: calf tenderness, clubbing, pedal edema Neurological exam: PRESENT: alert, awake, oriented to person, oriented to place , oriented to time, oriented to situation, CN II-XII grossly intact. ABSENT: motor sensory deficit Psychiatric exam: PRESENT: appropriate affect Skin exam: PRESENT: dry, intact, warm. ABSENT: cyanosis, rash Results Laboratory Results: 06/29/17 05:50 06/29/17 05:50 06/29/17 05:50 NT-Pro-B Natriuret Pep 1300 H Impressions: Chest/Abdomen CTA 06/28/17 10:02 IMPRESSION: 1. No central PE. 2. Interstitial edema versus atypical infection. Chest X-Ray 06/30/17 08:00 IMPRESSION: INTERSTITIAL PROMINENCE WITH SCATTERED ATELECTASIS. A COMPONENT OF INTERSTITIAL EDEMA CANNOT BE EXCLUDED. Assessment & Plan - Diagnosis (1) Acute respiratory failure with hypoxemia Is this a current diagnosis for this admission?: Yes Plan: Most likely secondary to congestive heart failure. Patient was concerned initially to have pneumonia although repeat chest x-ray is more suspicious of congestive heart failure. (2) Atrial fibrillation with RVR Is this a current diagnosis for this admission?: Yes Plan: Patient is rate control. (3) Diastolic heart failure Qualifiers: Heart failure chronicity: acute Qualified Code(s): I50.31 - Acute diastolic (congestive) heart failure Is this a current diagnosis for this admission?: Yes Plan: Patient is on IV Lasix. (4) Pneumonia Qualifiers: Pneumonia type: due to unspecified organism Laterality: unspecified laterality Lung location: unspecified part of lung Qualified Code(s): J18.9 - Pneumonia, unspecified organism Is this a current diagnosis for this admission?: Yes Plan: Patient was thought initially to have pneumonia. It is not clear whether this is all congestive heart failure or whether may be a component of pneumonia. Will continue with the Levaquin. - Time Time Spent with patient: 25-34 minutes - Inpatient Certification Medical Necessity: Need Close Monitoring Due to Risk of Patient Decompensation
[2017-07-01] MEDS: LEVALBUTEROL HCL NEB 1.25 MG/3 ML AMPUL NEB SCH ×4 (02:11→19:41)
[2017-07-01 04:40] LABS: HEMATOCRIT 42.6 % (37.9-51.0); HEMOGLOBIN 14.2 g/dL (13.5-17.0); MEAN CORPUSCULAR HEMOGLOBIN 30.7 pg (27.0-33.4); MEAN CORPUSCULAR HGB CONC 33.3 g/dL (32.0-36.0); MEAN CORPUSCULAR VOLUME 92 fl (80-97); RED BLOOD COUNT 4.62 10^6/uL (4.35-5.55); RED CELL DISTRIBUTION WIDTH 13.2 % (11.5-14.0); WHITE BLOOD COUNT 12.7 10^3/uL (4.0-10.5)
[2017-07-01 04:52] LABS: ANION GAP 14 (5-19); BLOOD UREA NITROGEN 42 mg/dL (7-20); CALCIUM 9.7 mg/dL (8.4-10.2); CARBON DIOXIDE 34 mmol/L (22-30); CHLORIDE 95 mmol/L (98-107); CREATININE RESULT 1.44 mg/dL (0.52-1.25); GLUCOSE 163 mg/dL (75-110); POTASSIUM 5.7 mmol/L (3.6-5.0); SODIUM 143.1 mmol/L (137-145)
[2017-07-01 05:11] LABS: BASOPHILS % (MANUAL) 0 % (0-2); EOSINOPHILS % (MANUAL) 0 % (0-6); LYMPHOCYTES % (MANUAL) 6 % (13-45); TOTAL CELLS COUNTED 100
[2017-07-01 05:13] LABS: OVALOCYTES SLIGHT; POIKILOCYTOSIS SLIGHT; SCHISTOCYTES SLIGHT; TOXIC GRANULATION SLIGHT
[2017-07-01] MEDS: METHYLPREDNISOLONE INJ 125 MG/2 ML SDV IV SCH ×3 (06:10→17:27)
[2017-07-01] MEDS: APIXABAN 5 MG TABLET PO SCH ×2 (09:23→17:27)
[2017-07-01] MEDS: LEVOFLOXACIN 500 MG TABLET PO SCH (09:23)
[2017-07-01] MEDS: METOPROLOL TARTRATE 50 MG TABLET PO SCH ×2 (09:23→21:45)
[2017-07-01] MEDS: FUROSEMIDE INJ/PF 40 MG/4 ML SDV IV SCH (09:24)
--- NOTE | 2017-07-01 10:51 | PDOC PROGRESS REPORT ---
Subjective Progress Note for:: 07/01/17 Subjective:: Complains of some mild shortness of breath. Reason For Visit: ACUTE RESPIRATORY FAILURE,POSSIBLE PNEUMONIA Physical Exam Vital Signs: Temp Pulse Resp BP Pulse Ox 97.9 F 89 16 113/88 H 96 07/01/17 08:09 07/01/17 08:24 07/01/17 08:24 07/01/17 08:09 07/01/17 08:24 Intake & Output 06/30/17 07/01/17 07/02/17 06:59 06:59 06:59 Intake Total 1534 1417 Output Total 1750 1900 Balance -216 -483 Weight 164.2 kg 155.4 kg General appearance: PRESENT: no acute distress Eye exam: PRESENT: conjunctiva pink. ABSENT: scleral icterus Mouth exam: PRESENT: moist, tongue midline Neck exam: ABSENT: JVD Respiratory exam: PRESENT: clear to auscultation dari. ABSENT: rales, rhonchi, wheezes Cardiovascular exam: PRESENT: RRR. ABSENT: diastolic murmur, rubs, systolic murmur GI/Abdominal exam: PRESENT: normal bowel sounds, soft. ABSENT: distended, guarding, mass, organolmegaly, rebound, tenderness Extremities exam: ABSENT: calf tenderness, clubbing, pedal edema Neurological exam: PRESENT: alert, awake, oriented to person, oriented to place , oriented to time, oriented to situation, CN II-XII grossly intact. ABSENT: motor sensory deficit Psychiatric exam: PRESENT: appropriate affect Skin exam: PRESENT: dry, intact, warm. ABSENT: cyanosis, rash Results Laboratory Results: 07/01/17 04:02 07/01/17 04:02 07/01/17 07/01/17 04:02 04:02 WBC 12.7 H RBC 4.62 Hgb 14.2 Hct 42.6 MCV 92 MCH 30.7 MCHC 33.3 RDW 13.2 Plt Count 294 Seg Neutrophils % Not Reportable Lymphocytes % Not Reportable Monocytes % Not Reportable Eosinophils % Not Reportable Basophils % Not Reportable Absolute Neutrophils Not Reportable Absolute Lymphocytes Not Reportable Absolute Monocytes Not Reportable Absolute Eosinophils Not Reportable Absolute Basophils Not Reportable Sodium 143.1 Potassium 5.7 H Chloride 95 L Carbon Dioxide 34 H Anion Gap 14 BUN 42 H Creatinine 1.44 H Est GFR ( Amer) 59 L Est GFR (Non-Af Amer) 49 L Glucose 163 H Calcium 9.7 06/29/17 05:50 NT-Pro-B Natriuret Pep 1300 H Impressions: Chest/Abdomen CTA 06/28/17 10:02 IMPRESSION: 1. No central PE. 2. Interstitial edema versus atypical infection. Chest X-Ray 06/30/17 08:00 IMPRESSION: INTERSTITIAL PROMINENCE WITH SCATTERED ATELECTASIS. A COMPONENT OF INTERSTITIAL EDEMA CANNOT BE EXCLUDED. Assessment & Plan - Diagnosis (1) Acute respiratory failure with hypoxemia Is this a current diagnosis for this admission?: Yes Plan: Most likely secondary to congestive heart failure. Patient was concerned initially to have pneumonia although repeat chest x-ray is more suspicious of congestive heart failure. The patient is doing well and we will stop the Lasix given the fact that his creatinine has improved. (2) Atrial fibrillation with RVR Is this a current diagnosis for this admission?: Yes Plan: Patient is rate control. (3) Diastolic heart failure Qualifiers: Heart failure chronicity: acute Qualified Code(s): I50.31 - Acute diastolic (congestive) heart failure Is this a current diagnosis for this admission?: Yes Plan: Patient is euvolemic today. The creatinine actually has increased and we will stop the Lasix for now. If he does well overnight we can discharge home tomorrow. (4) Pneumonia Qualifiers: Pneumonia type: due to unspecified organism Laterality: unspecified laterality Lung location: unspecified part of lung Qualified Code(s): J18.9 - Pneumonia, unspecified organism Is this a current diagnosis for this admission?: Yes Plan: Patient was thought initially to have pneumonia. It is not clear whether this is all congestive heart failure or whether may be a component of pneumonia. Will continue with the Levaquin. - Time Time Spent with patient: 25-34 minutes - Inpatient Certification Medical Necessity: Need Close Monitoring Due to Risk of Patient Decompensation
[2017-07-02] MEDS: METHYLPREDNISOLONE INJ 125 MG/2 ML SDV IV SCH ×2 (01:43→09:31)
[2017-07-02] MEDS: LEVALBUTEROL HCL NEB 1.25 MG/3 ML AMPUL NEB SCH ×3 (01:49→14:03)
[2017-07-02 04:52] LABS: HEMATOCRIT 42.4 % (37.9-51.0); HEMOGLOBIN 14.1 g/dL (13.5-17.0); HGB HCT DIFFERENCE -0.1; MEAN CORPUSCULAR HEMOGLOBIN 30.9 pg (27.0-33.4); MEAN CORPUSCULAR HGB CONC 33.3 g/dL (32.0-36.0); MEAN CORPUSCULAR VOLUME 93 fl (80-97); RED BLOOD COUNT 4.57 10^6/uL (4.35-5.55); RED CELL DISTRIBUTION WIDTH 13.3 % (11.5-14.0); WHITE BLOOD COUNT 11.9 10^3/uL (4.0-10.5)
[2017-07-02 05:00] LABS: ANION GAP 13 (5-19); BLOOD UREA NITROGEN 37 mg/dL (7-20); CALCIUM 9.1 mg/dL (8.4-10.2); CARBON DIOXIDE 32 mmol/L (22-30); CHLORIDE 95 mmol/L (98-107); CREATININE RESULT 1.04 mg/dL (0.52-1.25); GLUCOSE 136 mg/dL (75-110); POTASSIUM 5.1 mmol/L (3.6-5.0); SODIUM 139.6 mmol/L (137-145)
[2017-07-02 05:22] LABS: BAND NEUTROPHILS % (MANUAL) 1 % (3-5); BASOPHILS % (MANUAL) 0 % (0-2); EOSINOPHILS % (MANUAL) 0 % (0-6); LYMPHOCYTES % (MANUAL) 5 % (13-45); TOTAL CELLS COUNTED 100
[2017-07-02 05:25] LABS: POIKILOCYTOSIS SLIGHT; STOMATOCYTES SLIGHT; TEAR DROP CELLS SLIGHT; TOXIC GRANULATION SLIGHT; TOXIC VACUOLATION PRESENT
[2017-07-02] MEDS: LEVOFLOXACIN 500 MG TABLET PO SCH (09:31)
[2017-07-02] MEDS: APIXABAN 5 MG TABLET PO SCH (09:31)
[2017-07-02] MEDS: METOPROLOL TARTRATE 50 MG TABLET PO SCH (09:31)
[2017-07-02 13:10] VITALS: BP 113/84
--- NOTE | 2017-07-02 13:31 | PDOC DISCHARGE SUMMARY ---
General - Admit/Disc Date/PCP Admission Date/Primary Care Provider: 06/28/17 12:23 Discharge Date: 07/02/17 - Discharge Diagnosis (1) Acute respiratory failure with hypoxemia Is this a current diagnosis for this admission?: Yes Summary: Secondary to congestive heart failure and COPD (2) Atrial fibrillation with RVR Is this a current diagnosis for this admission?: Yes (3) Diastolic heart failure Is this a current diagnosis for this admission?: Yes Summary: Acute on chronic diastolic congestive heart failure (4) Pneumonia Is this a current diagnosis for this admission?: Yes Summary: Is not entirely clear whether patient had pneumonia present but will complete a course of Levaquin. - Additional Information Resuscitation Status: Full Code Discharge Diet: Cardiac Discharge Activity: Activity As Tolerated, Balance Activity w/Rest, Weigh Daily Home Medications: Apixaban [Eliquis 5 mg Tablet] 5 mg PO BID 10 Days tablet 06/23/17 Metoprolol Tartrate 50 mg PO BID 10 Days tablet 06/23/17 Lisinopril/Hydrochlorothiazide [Zestoretic 20-12.5 mg Tablet] 1 tab PO DAILY 10/10 Multivit-Min/FA/Lycopen/Lutein [Centrum Silver Men Tablet] 1 tab PO DAILY Furosemide [Lasix 20 mg Tablet] 20 mg PO BID #60 tablet 07/02/17 Levofloxacin [Levaquin 500 mg Tablet] 500 mg PO DAILY #3 tablet 07/02/17 Prednisone 10 mg PO DAILY #39 tablet 07/02/17 History of Present Illness History of Present Illness: CARLOS BELTRAN is a 67 year old male who has a history of atrial fibrillation hypertension who presented with shortness of breath. The patient did not have any fevers or chills. Patient was hypoxic when he presented. There was concern that there may be an infiltrate versus pulmonary edema. He is admitted for further workup. Hospital Course Hospital Course: 59-year-old gentleman who presented with shortness of breath and hypoxia. The patient was found to have congestive heart failure secondary to diastolic dysfunction. He also had atrial fibrillation with a rapid ventricular rate. His heart rate has been controlled. he also had an acute COPD exacerbation treated with steroids. On the day of discharge his oxygen saturations were 90% on room air at rest and decreased at 87% with ambulation. The patient was observed by me to noted to have some apneic spells and most likely has obstructive sleep apnea given his obesity. The patient is encouraged to follow with his primary care doctor and have a sleep study scheduled. Patient does qualify for home oxygen we will sent home on that. He will complete a course of Levaquin for possibility of pneumonia. When he presented it was not clear whether his chest x-ray findings were from pulmonary edema or may have a component of early pneumonia. The patient is discharged home in stable condition. The patient's congestive heart failure was treated with IV Lasix. His creatinine started to increase in his IV Lasix was stopped. His creatinine returned to normal and he is being sent home on oral Lasix. Physical Exam Vital Signs: Temp Pulse Resp BP Pulse Ox 98.9 F 102 H 18 113/84 91 L 07/02/17 13:08 07/02/17 13:08 07/02/17 13:08 07/02/17 13:08 07/02/17 13:08 Intake & Output 07/01/17 07/02/17 07/03/17 06:59 06:59 06:59 Intake Total 1417 1774 700 Output Total 1900 2200 950 Balance -483 -426 -250 Weight 155.4 kg 158.1 kg General appearance: PRESENT: no acute distress Eye exam: PRESENT: conjunctiva pink. ABSENT: scleral icterus Mouth exam: PRESENT: moist, tongue midline Neck exam: ABSENT: JVD Respiratory exam: PRESENT: clear to auscultation dari. ABSENT: rales, rhonchi, wheezes Cardiovascular exam: PRESENT: RRR. ABSENT: diastolic murmur, rubs, systolic murmur GI/Abdominal exam: PRESENT: normal bowel sounds, soft. ABSENT: distended, guarding, mass, organolmegaly, rebound, tenderness Extremities exam: ABSENT: calf tenderness, clubbing, pedal edema Neurological exam: PRESENT: alert, awake, oriented to person, oriented to place , oriented to time, oriented to situation, CN II-XII grossly intact. ABSENT: motor sensory deficit Psychiatric exam: PRESENT: appropriate affect Skin exam: PRESENT: dry, intact, warm. ABSENT: cyanosis, rash Results Laboratory Results: 07/02/17 04:17 07/02/17 04:17 07/02/17 07/02/17 04: 04:17 WBC 11.9 H RBC 4.57 Hgb 14.1 Hct 42.4 MCV 93 MCH 30.9 MCHC 33.3 RDW 13.3 Plt Count 300 Seg Neutrophils % Not Reportable Lymphocytes % Not Reportable Monocytes % Not Reportable Eosinophils % Not Reportable Basophils % Not Reportable Absolute Neutrophils Not Reportable Absolute Lymphocytes Not Reportable Absolute Monocytes Not Reportable Absolute Eosinophils Not Reportable Absolute Basophils Not Reportable Sodium 139.6 Potassium 5.1 H Chloride 95 L Carbon Dioxide 32 H Anion Gap 13 BUN 37 H Creatinine 1.04 Est GFR ( Amer) > 60 Est GFR (Non-Af Amer) > 60 Glucose 136 H Calcium 9.1 06/29/17 05:50 NT-Pro-B Natriuret Pep 1300 H Impressions: Chest/Abdomen CTA 06/28/17 10:02 IMPRESSION: 1. No central PE. 2. Interstitial edema versus atypical infection. Chest X-Ray 06/30/17 08:00 IMPRESSION: INTERSTITIAL PROMINENCE WITH SCATTERED ATELECTASIS. A COMPONENT OF INTERSTITIAL EDEMA CANNOT BE EXCLUDED. Qualifiers PATEINT BEING DISCHARGED WITH ANY OF THE FOLLOWING DIAGNOSIS?: Heart Failure HF Pt with Afib discharged with Warfarin?: Yes HF Pt discharged on evidence-based Beta Deion:: Yes Plan Discharge Plan: Patient is discharged home. Will follow with primary care in 2 weeks. He is sent home on oxygen 2 L per nasal cannula. Time Spent: Greater than 30 Minutes
[2017-07-02] MEDS ORDERED: ONDANSETRON HCL INJ/PF 4 MG/2 ML SDV IV PRN (14:04)
[2017-07-02] MEDS ORDERED: IPRATROPIUM/ALBUTEROL 0.5-2.5 MG/3 ML AMPUL NEB PRN (14:06)
== END 2017-07-02 14:29 | disposition home or self-care (01) | DRG 291 ==
LOC: ER 08:52 → EH 12:23 → 3W 06-29 12:16
PROVIDERS: ADMIT Family Medicine; ATTEND Family Medicine
PROC: 3E0F73Z Introduction of Anti-inflammatory into Respiratory Tract, Via Natural or Artificial Opening (ICD-10-PCS; principal; 2017-06-29)
DX: I11.0 Hypertensive heart disease with heart failure (principal); J96.01 Acute respiratory failure with hypoxia; J18.9 Pneumonia, unspecified organism; J44.1 Chronic obstructive pulmonary disease with (acute) exacerbation; Z68.41 Body mass index [BMI] 40.0-44.9, adult; I50.33 Acute on chronic diastolic (congestive) heart failure; I48.91 Unspecified atrial fibrillation; G47.33 Obstructive sleep apnea (adult) (pediatric); E66.9 Obesity, unspecified; Z79.02 Long term (current) use of antithrombotics/antiplatelets; Z99.81 Dependence on supplemental oxygen
CPT/HCPCS: 36415; 71020; 71275; 80048; 80053; 81001; 82550; 82553; 82962; 83735; 83880; 84484; 85025; 87040; 93005; 93010; 94640; 96365; 99291; J0696; J1940; J2930; J3490; J7512; J7620

== ENCOUNTER 2017-07-13 01:35 | Emergency (ER) | payer BC, MEDICARE ==
--- NOTE | 2017-07-13 01:50 | ER Document Report ---
ED Respiratory Problem - General Chief Complaint: Shortness Of Breath Stated Complaint: SHORTNESS OF BREATH Time Seen by Provider: 07/13/17 01:41 Notes: Patient is a 67-year-old male that comes emergency department for chief complaint of difficulty breathing, he comes by EMS, he was found to have an initial oxygen saturation in the 70s, when he ambulated and dropped down to the 60s. Patient has as needed home oxygen at 2 L. Patient states he started to have increased lower extremity swelling and cough over the past 2 days. Patient states he was lying flat at home and began to cough, continued to have coughing episodes, coughed up some pink sputum and decided to come be evaluated. Past medical history of CHF (lasix 20 mg BID) he also takes Eliquis because of atrial fibrillation, he states he has had an echo and stress test within the past 6 months but does not know the results of these. He was discharged from the hospital just over a week ago (new onset afib, CHF). He denies smoking or COPD. TRAVEL OUTSIDE OF THE [place] IN LAST 30 DAYS: No - Related Data Allergies/Adverse Reactions: No Known Allergies Allergy (Verified 06/29/17 07:37) Home Medications: Current Home Medications Apixaban [Eliquis 5 mg Tablet] 5 mg PO BID 07/13/17 [History] Cetirizine HCl [Zyrtec] 10 mg PO 07/13/17 [History] Fluticasone Propionate 2 spray IN DAILY 07/13/17 [History] Metoprolol Tartrate 75 mg PO DAILY 07/13/17 [History] Past Medical History - General Information source: Patient - Social History Smoking Status: Former Smoker Frequency of alcohol use: None Drug Abuse: None Lives with: Family Family History: Hypertension - His brother has hypertension. - Past Medical History Cardiac Medical History: Reports: Hx Atrial Fibrillation - eliquis, Hx Hypertension Renal/ Medical History: Denies: Hx Peritoneal Dialysis Psychiatric Medical History: Reports: Hx Depression - in past Past Surgical History: Reports: Hx Orthopedic Surgery - right knee Review of Systems - Review of Systems Constitutional: No symptoms reported EENT: No symptoms reported Cardiovascular: No symptoms reported Respiratory: See HPI Gastrointestinal: No symptoms reported Genitourinary: No symptoms reported Male Genitourinary: No symptoms reported Musculoskeletal: No symptoms reported Skin: No symptoms reported Hematologic/Lymphatic: No symptoms reported Neurological/Psychological: No symptoms reported Physical Exam - Vital signs Vitals: Resp BP Pulse Ox 22 H 99/77 L 94 07/13/17 01:45 07/13/17 01:45 07/13/17 01:45 Interpretation: Normal - General General appearance: Appears well, Alert In distress: None - HEENT Head: Normocephalic, Atraumatic Eyes: Normal Pupils: PERRL - Respiratory Respiratory status: No respiratory distress. No: Retractions, Tachypnea Chest status: Nontender Breath sounds: Decreased air movement - Decreased air movement with scattered coarse breath sounds, no rales, rhonchi, or wheezing noted Chest palpation: Normal - Cardiovascular Rhythm: Regular. No: Tachycardia Heart sounds: Normal auscultation, S1 appreciated, S2 appreciated Murmur: No - Abdominal Inspection: Normal Distension: No distension Bowel sounds: Normal Tenderness: Nontender Organomegaly: No organomegaly - Back Back: Normal, Nontender - Extremities General upper extremity: Normal inspection, Nontender, Normal color, Normal ROM , Normal temperature General lower extremity: Normal inspection, Nontender, Edema - Bilateral 1+ pitting edema, unremarkable extremity exam otherwise, Normal color, Normal ROM, Normal temperature, Normal weight bearing. No: Adrian's sign - Neurological Neuro grossly intact: Yes Cognition: Normal Orientation: AAOx4 [place] Coma Scale Eye Opening: Spontaneous [place] Coma Scale Verbal: Oriented Eva Coma Scale Motor: Obeys Commands Eva Coma Scale Total: 15 Speech: Normal Motor strength normal: LUE, RUE, LLE, RLE Sensory: Normal - Psychological Associated symptoms: Normal affect, Normal mood - Skin Skin Temperature: Warm Skin Moisture: Dry Skin Color: Normal Course - Re-evaluation Re-evalutation: Patient is not in any distress on my evaluation. No tachypnea, labored breathing, not hypoxic on the same oxygen that he wears at home. Mildly decreased breath sounds bilaterally with a few coarse breath sounds but no overt wheezing, rales, or rhonchi. Patient was given a DuoNeb breathing treatment, Solu-Medrol. He does have borderline lower extremity edema bilaterally, however he states he is taking his Lasix, chest x-ray does not show pulmonary vascular congestion, BNP is significantly lower compared to prior. No leukocytosis or fever. Patient does report productive cough. Clinical picture most consistent with COPD exacerbation. \Patient ambulated, pulse oxygen saturation did not drop below 91% and he performed very well. He states he actually feels very good and he is ready to leave. Patient wants antibiotics along with steroids at home. Because of productive cough and prednisone use patient will be put on doxycycline. Patient is to follow-up closely with his provider and return if he worsens in any way. Patient states satisfaction and agreement. - Vital Signs Vital signs: Temp Pulse Resp BP Pulse Ox 27 H 145/102 H 92 07/13/17 04:02 07/13/17 03:05 07/13/17 04:02 - Laboratory Result Diagrams: 07/13/17 02:26 07/13/17 02:26 Laboratory results interpreted by me: 07/13/17 07/13/17 07/13/17 02:26 02:26 02:26 Lymphocytes % 11.1 L VBG pH VBG HCO3 Chloride 91 L Carbon Dioxide 36 H BUN 22 H ALT 78 H NT-Pro-B Natriuret Pep 904 H Total Protein 6.0 L 07/13/17 02:26 Lymphocytes % VBG pH 7.44 H VBG HCO3 36.4 H Chloride Carbon Dioxide BUN ALT NT-Pro-B Natriuret Pep Total Protein Discharge - Discharge Clinical Impression: Shortness of breath, Productive cough Condition: Stable Disposition: HOME, SELF-CARE Additional Instructions: Your workup and examination are most consistent with COPD exacerbation/ bronchitis. Take the prednisone as prescribed, take doxycycline because of productive cough, follow-up closely with your primary care within the next several days. Return if you worsen in anyway including difficulty breathing, fever, chest pain, or any other concerning symptoms. Prescriptions: Doxycycline Hyclate 100 mg PO BID #14 capsule Prednisone [Deltasone 10 mg Tablet] 10 mg PO ASDIR PRN #21 tablet PRN Reason: Referrals: NIKA VASQUEZ MD [Primary Care Provider] - Follow up as needed
[2017-07-13 02:39] LABS: VENOUS BLOOD BASE EXCESS 10.2 mmol/L; VENOUS BLOOD HCO3 36.4 mmol/L (20-32); VENOUS BLOOD PCO2 54.7 mmHg (35-63); VENOUS BLOOD PH 7.44 (7.30-7.42)
[2017-07-13 02:40] LABS: ABSOLUTE BASOPHILS # (AUTO) 0.1 10^3/uL (0.0-0.2); ABSOLUTE EOSINOPHILS # (AUTO) 0.2 10^3/uL (0.0-0.6); ABSOLUTE LYMPHOCYTES (AUTO) 1.1 10^3/uL (0.5-4.7); ABSOLUTE MONOCYTES (AUTO) 0.9 10^3/uL (0.1-1.4); ABSOLUTE NEUT (AUTO) 7.9 10^3/uL (1.7-8.2); BASOPHILS % (AUTO) 0.9 % (0-2); EOSINOPHILS % (AUTO) 2.2 % (0-6); HEMATOCRIT 41.3 % (37.9-51.0); HEMOGLOBIN 14.3 g/dL (13.5-17.0); HGB HCT DIFFERENCE 1.6; LYMPHOCYTES % (AUTO) 11.1 % (13-45); MEAN CORPUSCULAR HEMOGLOBIN 31.5 pg (27.0-33.4); MEAN CORPUSCULAR HGB CONC 34.6 g/dL (32.0-36.0); MEAN CORPUSCULAR VOLUME 91 fl (80-97); MONOCYTES % (AUTO) 8.6 % (3-13); RED BLOOD COUNT 4.54 10^6/uL (4.35-5.55); RED CELL DISTRIBUTION WIDTH 13.8 % (11.5-14.0); SEGMENTED NEUTROPHILS % (AUTO) 77.2 % (42-78); WHITE BLOOD COUNT 10.3 10^3/uL (4.0-10.5)
--- NOTE | 2017-07-13 02:45 | RADIOLOGY REPORT (SQ) ---
EXAM DESCRIPTION: CHEST SINGLE VIEW CLINICAL HISTORY: hypoxia, cough, shortness of breath COMPARISON: 11/2016 FINDINGS: Single frontal view of the chest. The cardiomediastinal silhouette has normal size and contour. Right midlung discoid atelectasis unchanged. Improved aeration of the left lung. Leads overlie the chest. No displaced rib fractures identified. Upper abdominal soft tissues are unremarkable. IMPRESSION: 1. Right midlung discoid atelectasis is unchanged. Improved aeration the left lung base. No lobar consolidation.
[2017-07-13 02:52] LABS: ALANINE AMINOTRANSFERASE 78 U/L (21-72); ALBUMIN 3.6 g/dL (3.5-5.0); ALKALINE PHOSPHATASE 72 U/L (38-126); ANION GAP 11 (5-19); ASPARTATE AMINO TRANSFERASE 17 U/L (17-59); BILIRUBIN,DIRECT 0.1 mg/dL (0.0-0.4); BILIRUBIN,TOTAL 0.8 mg/dL (0.2-1.3); BLOOD UREA NITROGEN 22 mg/dL (7-20); CALCIUM 9.1 mg/dL (8.4-10.2); CARBON DIOXIDE 36 mmol/L (22-30); CHLORIDE 91 mmol/L (98-107); CREATINE KINASE 76 U/L (55-170); CREATININE RESULT 1.14 mg/dL (0.52-1.25); GLUCOSE 99 mg/dL (75-110); POTASSIUM 4.5 mmol/L (3.6-5.0); SODIUM 137.5 mmol/L (137-145)
[2017-07-13 03:04] LABS: TROPONIN I 0.019 ng/mL
[2017-07-13 03:15] VITALS: BP 145/102
[2017-07-13] MEDS ORDERED: IPRATROPIUM/ALBUTEROL 0.5-2.5 MG/3 ML AMPUL NEB ONE (03:15)
[2017-07-13] MEDS ORDERED: METHYLPREDNISOLONE INJ 125 MG/2 ML SDV IV ONE (03:19)
[2017-07-13 03:46] LABS: AMORPHOUS SEDIMENT,URINE TRACE /HPF; APPEARANCE,URINE SLIGHTLY-CLOUDY; BILIRUBIN,URINE NEGATIVE (NEGATIVE); GLUCOSE, URINE NEGATIVE (NEGATIVE); KETONES,URINE NEGATIVE (NEGATIVE); LEUKOCYTE ESTERASE,URINE NEGATIVE (NEGATIVE); NITRITE,URINE NEGATIVE (NEGATIVE); PROTEIN,URINE NEGATIVE (NEGATIVE); URINE SPECIFIC GRAVITY 1.012; UROBILINOGEN,URINE NEGATIVE mg/dL (<2.0)
--- NOTE | 2017-07-13 07:49 | EKG REPORT ---
SEVERITY:- ABNORMAL ECG - ATRIAL FIBRILLATION, V-RATE 80-99 LAD, CONSIDER LEFT ANTERIOR FASCICULAR BLOCK LOW VOLTAGE IN FRONTAL LEADS : Confirmed by: José Luis Coffey MD 13-Jul-2017 07:49:17
== END 2017-07-13 04:52 | disposition home or self-care (01) ==
LOC: ER 01:35
DX: I11.0 Hypertensive heart disease with heart failure (principal); I50.9 Heart failure, unspecified; R05 Cough; Z99.81 Dependence on supplemental oxygen; I48.91 Unspecified atrial fibrillation; Z79.01 Long term (current) use of anticoagulants; R06.02 Shortness of breath; Z79.899 Other long term (current) drug therapy; Z87.891 Personal history of nicotine dependence
CPT/HCPCS: 93005; 94640; 99285; 96374; 36415; 87040; 82550; 85025; 87077; 80053; 81001; 84484; 87186; 82803; 83880; 71010; 93010; J2930; J7620

== ENCOUNTER 2017-07-23 18:08 | Emergency (ER) | payer BC, MEDICARE ==
--- NOTE | 2017-07-23 19:31 | ER Document Report ---
ED ENT - General Chief Complaint: Nose Bleed Stated Complaint: NOSE BLEED Time Seen by Provider: 07/23/17 18:52 Notes: The patient is a 67-year-old male, past medical history A. diego (on Eliquis), presents with 2 hours of epistaxis from his right nose. He wears oxygen at home and has been blowing his nose recently. EMS tried Afrin spray and TXA topical, but the patient still feels that clots are coming down the back of his throat. Denies trauma, lightheadedness, rash, chest pain, shortness of breath, nausea, vomiting or fall. TRAVEL OUTSIDE OF THE [place] IN LAST 30 DAYS: No - Related Data Allergies/Adverse Reactions: No Known Allergies Allergy (Verified 06/29/17 07:37) Past Medical History - General Information source: Patient - Social History Smoking Status: Current Every Day Smoker Family History: Hypertension - His brother has hypertension. - Past Medical History Cardiac Medical History: Reports: Hx Atrial Fibrillation - eliquis, Hx Congestive Heart Failure, Hx Hypercholesterolemia, Hx Hypertension Renal/ Medical History: Denies: Hx Peritoneal Dialysis Psychiatric Medical History: Reports: Hx Depression - in past Past Surgical History: Reports: Hx Orthopedic Surgery - right knee Review of Systems - Review of Systems Notes: REVIEW OF SYSTEMS: CONSTITUTIONAL: -fevers, -chills EENT: +epistaxis, -eye pain, -difficulty swallowing, -nasal congestion CARDIOVASCULAR:-chest pain, -syncope. RESPIRATORY: -cough, -SOB GASTROINTESTINAL: -abdominal pain, - nausea, -vomiting, -diarrhea GENITOURINARY: -dysuria, -hematuria MUSCULOSKELETAL: -back pain, -neck pain SKIN: -rash or skin lesions. HEMATOLOGIC: +easy bleeding. LYMPHATIC: -swollen, enlarged glands. NEUROLOGICAL: -altered mental status or loss of consciousness, -headache, - neurologic symptoms PSYCHIATRIC: -anxiety, -depression. ALL OTHER SYSTEMS REVIEWED AND NEGATIVE. Physical Exam - Vital signs Vitals: Temp Pulse Resp BP Pulse Ox 98.4 F 104 H 20 130/80 H 95 07/23/17 19:00 07/23/17 19:00 07/23/17 19:00 07/23/17 19:00 07/23/17 19:00 - Notes Notes: PHYSICAL EXAMINATION: GENERAL: Well-appearing, well-nourished and in no acute distress. HEAD: Atraumatic, normocephalic. EYES: Pupils equal round and reactive to light, extraocular movements intact, sclera anicteric, conjunctiva are normal. ENT: slow ooze out of right nares, no focal area of bleeding, nares patent, oropharynx clear without exudates. Moist mucous membranes. NECK: Normal range of motion, supple without lymphadenopathy LUNGS: Breath sounds clear to auscultation bilaterally and equal. No wheezes rales or rhonchi. HEART: Irregular rhythm, mildly tachycardia ABDOMEN: Soft, nontender, normoactive bowel sounds. No guarding, no rebound. No masses appreciated. EXTREMITIES: Normal range of motion, no pitting or edema. No cyanosis. NEUROLOGICAL: Cranial nerves grossly intact. Normal speech, normal gait. Normal sensory and motor exams. PSYCH: Normal mood, normal affect. SKIN: Warm, Dry, normal turgor, no rashes or lesions noted. Course - Re-evaluation Re-evalutation: Patient on Eliquis and started with right epistaxis earlier today. He said that he soaked through a shirt, but hemoglobin is remaining normal. Prior to arrival, he tried Afrin and TXA topical with continuing epistaxis. Nasal packing was placed by myself with cessation of his bleeding. He is in A. fib with heart rate in the low 100s and he is scheduled for a cardioversion next week with his internet sales manager. Instructed him to follow-up with the ENT clinic tomorrow and return to the ER in 2 days if he is unable to follow-up for a recheck of his symptoms and possible nasal packing removal. Patient comfortable with plan. No active bleeding on discharge. - Vital Signs Vital signs: Temp Pulse Resp BP Pulse Ox 98.4 F 104 H 20 130/80 H 95 07/23/17 19:00 07/23/17 19:00 07/23/17 19:00 07/23/17 19:00 07/23/17 19:00 - Laboratory Result Diagrams: 07/23/17 19:21 Laboratory results interpreted by me: 07/23/17 19:21 WBC 11.5 H Seg Neutrophils % 83.1 H Lymphocytes % 7.7 L Absolute Neutrophils 9.5 H Procedures - Nosebleed Procedure Right Time completed: 19:30 Location: Anterior Supplies used: Rhinorocket Discharge - Discharge Clinical Impression: Epistaxis Condition: Stable Disposition: HOME, SELF-CARE Additional Instructions: Nosebleed Instructions There is a significant chance of re-bleeding following a nosebleed. Proper care makes this less likely. Do not touch the nose for 24 hours. Do not blow the nose forcefully for one week. After 24 hours, gently apply Vaseline ointment to both nostrils with the tip of a finger, three times a day, for one week. It's normal to have a bloody mucous discharge for a few days. If active bleeding recurs, blow all the blood from the nose, then sit quietly and pinch the nose as firmly as possible for 10 minutes. If this does not stop the bleeding, return for further care. If packing was left in the nose and it starts to come out of the nostril, either tuck it back in or cut it off. Don't pull it out. Return for recheck and removal of the packing when instructed. Persons with frequent nosebleeds should avoid aspirin (unless prescribed for another reason). Humidity in the bedroom, and petroleum jelly applied to the nostrils at night may help. Referrals: SISI KIRBY DO [ASSOCIATE] - Follow up as needed
[2017-07-23 19:34] LABS: ABSOLUTE BASOPHILS # (AUTO) 0.1 10^3/uL (0.0-0.2); ABSOLUTE EOSINOPHILS # (AUTO) 0.2 10^3/uL (0.0-0.6); ABSOLUTE LYMPHOCYTES (AUTO) 0.9 10^3/uL (0.5-4.7); ABSOLUTE MONOCYTES (AUTO) 0.7 10^3/uL (0.1-1.4); ABSOLUTE NEUT (AUTO) 9.5 10^3/uL (1.7-8.2); BASOPHILS % (AUTO) 0.9 % (0-2); EOSINOPHILS % (AUTO) 1.9 % (0-6); HEMATOCRIT 41.6 % (37.9-51.0); HEMOGLOBIN 13.6 g/dL (13.5-17.0); LYMPHOCYTES % (AUTO) 7.7 % (13-45); MEAN CORPUSCULAR HEMOGLOBIN 30.1 pg (27.0-33.4); MEAN CORPUSCULAR HGB CONC 32.8 g/dL (32.0-36.0); MEAN CORPUSCULAR VOLUME 92 fl (80-97); MONOCYTES % (AUTO) 6.4 % (3-13); PLATELET COUNT 206 10^3/uL (150-450); RED BLOOD COUNT 4.54 10^6/uL (4.35-5.55); RED CELL DISTRIBUTION WIDTH 13.9 % (11.5-14.0); SEGMENTED NEUTROPHILS % (AUTO) 83.1 % (42-78); TOTAL CELLS COUNTED % (AUTO) 100 %; WHITE BLOOD COUNT 11.5 10^3/uL (4.0-10.5)
[2017-07-23 19:56] LABS: INTERNATIONAL RATION (INR) 0.93; PARTIAL THROMBOPLASTIN TIME 30.6 SEC (23.5-35.8); PROTHROMBIN TIME 13.2 SEC (11.4-15.4)
[2017-07-23 20:12] VITALS: BP 128/83
== END 2017-07-23 20:03 | disposition home or self-care (01) ==
LOC: ER 18:08
PROC: 2Y41X5Z Packing of Nasal Region using Packing Material (ICD-10-PCS; principal; 2017-07-23)
DX: R04.0 Epistaxis (principal); I48.91 Unspecified atrial fibrillation; Z79.01 Long term (current) use of anticoagulants; F17.200 Nicotine dependence, unspecified, uncomplicated
CPT/HCPCS: 36415; 85025; 85610; 85730; 86850; 86900; 86901; 99283

== ENCOUNTER 2017-07-25 22:07 | Emergency (ER) | payer OTHER, MEDICARE, BC ==
[2017-07-25 22:47] VITALS: BP 111/62
[2017-07-25] MEDS ORDERED: OXYMETAZOLINE HCL 0.05% NASAL SPRAY 15 ML BOTTLE NASL ONE (23:12)
[2017-07-25] MEDS ORDERED: OXYMETAZOLINE HCL 0.05% NASAL SPRAY 15 ML BOTTLE ONE (23:14)
--- NOTE | 2017-07-25 23:18 | ER Document Report ---
ED ENT - General Chief Complaint: Wound Recheck Stated Complaint: WOUND RECHECK Time Seen by Provider: 07/25/17 23:08 Notes: Patient is a 67-year-old male, past medical history A. fib on Eliquis, COPD on home oxygen, presents for removal of his nasal packing placed 2 nights ago for epistaxis by myself. The ENT clinics were closed this week due to the holiday. Patient has not noticed any active bleeding or blood clots down the back of his throat. He denies lightheadedness, fevers or difficulty breathing. TRAVEL OUTSIDE OF THE [place] IN LAST 30 DAYS: No - Related Data Allergies/Adverse Reactions: No Known Allergies Allergy (Verified 06/29/17 07:37) Past Medical History - General Information source: Patient - Social History Smoking Status: Former Smoker Family History: Hypertension - His brother has hypertension. - Past Medical History Cardiac Medical History: Reports: Hx Atrial Fibrillation - eliquis, Hx Congestive Heart Failure, Hx Hypercholesterolemia, Hx Hypertension Renal/ Medical History: Denies: Hx Peritoneal Dialysis Psychiatric Medical History: Reports: Hx Depression - in past Past Surgical History: Reports: Hx Orthopedic Surgery - right knee Review of Systems - Review of Systems Notes: REVIEW OF SYSTEMS: CONSTITUTIONAL: -fevers, -chills EENT: -eye pain, -difficulty swallowing, -nasal congestion, +epistaxis CARDIOVASCULAR:-chest pain, -syncope. RESPIRATORY: -cough, -SOB GASTROINTESTINAL: -abdominal pain, -nausea, -vomiting, -diarrhea GENITOURINARY: -dysuria, -hematuria MUSCULOSKELETAL: -back pain, -neck pain SKIN: -rash or skin lesions. HEMATOLOGIC: -easy bruising or bleeding. LYMPHATIC: -swollen, enlarged glands. NEUROLOGICAL: -altered mental status or loss of consciousness, -headache, - neurologic symptoms PSYCHIATRIC: -anxiety, -depression. ALL OTHER SYSTEMS REVIEWED AND NEGATIVE. Physical Exam - Vital signs Vitals: Temp Pulse Resp BP Pulse Ox 99.1 F 79 18 111/62 91 L 07/25/17 22:44 07/25/17 22:44 07/25/17 22:44 07/25/17 22:44 07/25/17 22:44 - Notes Notes: PHYSICAL EXAMINATION: GENERAL: Well-appearing, well-nourished and in no acute distress. HEAD: Atraumatic, normocephalic. EYES: Pupils equal round and reactive to light, extraocular movements intact, sclera anicteric, conjunctiva are normal. ENT: Rhinorocket in right nares, small ooze in anterior right nares once rhinorocket removed, oropharynx clear without exudates. Moist mucous membranes. NECK: Normal range of motion, supple without lymphadenopathy LUNGS: Breath sounds clear to auscultation bilaterally and equal. No wheezes rales or rhonchi. HEART: Regular rate and rhythm without murmurs ABDOMEN: Soft, nontender, normoactive bowel sounds. No guarding, no rebound. No masses appreciated. EXTREMITIES: Normal range of motion, no pitting or edema. No cyanosis. NEUROLOGICAL: Cranial nerves grossly intact. Normal speech, normal gait. Normal sensory and motor exams. PSYCH: Normal mood, normal affect. SKIN: Warm, Dry, normal turgor, no rashes or lesions noted. Course - Re-evaluation Re-evalutation: Rhinorocket removed, Afrin spray applied and patient held pressure for 15 minutes due to the very small ooze from her anterior right naris. No active bleeding noted at this time. - Vital Signs Vital signs: Temp Pulse Resp BP Pulse Ox 99.1 F 79 18 111/62 91 L 07/25/17 22:44 07/25/17 22:44 07/25/17 22:44 07/25/17 22:44 07/25/17 22:44 Discharge - Discharge Clinical Impression: Encounter for removal of nasal packing Condition: Stable Additional Instructions: Nosebleed Instructions There is a significant chance of re-bleeding following a nosebleed. Proper care makes this less likely. Do not touch the nose for 24 hours. Do not blow the nose forcefully for one week. After 24 hours, gently apply Vaseline ointment to both nostrils with the tip of a finger, three times a day, for one week. It's normal to have a bloody mucous discharge for a few days. If active bleeding recurs, blow all the blood from the nose, then sit quietly and pinch the nose as firmly as possible for 10 minutes. If this does not stop the bleeding, return for further care. If packing was left in the nose and it starts to come out of the nostril, either tuck it back in or cut it off. Don't pull it out. Return for recheck and removal of the packing when instructed. Persons with frequent nosebleeds should avoid aspirin (unless prescribed for another reason). Humidity in the bedroom, and petroleum jelly applied to the nostrils at night may help. Referrals: NIKA VASQUEZ MD [Primary Care Provider] - Follow up as needed
== END 2017-07-25 23:30 | disposition home or self-care (01) ==
LOC: ER 22:07
DX: Z48.00 Encounter for change or removal of nonsurgical wound dressing (principal); R04.0 Epistaxis; I10 Essential (primary) hypertension; I48.91 Unspecified atrial fibrillation; Z79.01 Long term (current) use of anticoagulants; J44.9 Chronic obstructive pulmonary disease, unspecified; Z99.81 Dependence on supplemental oxygen; Z87.891 Personal history of nicotine dependence
CPT/HCPCS: 99282